=== PATIENT | male | born 1965 | race Caucasian/White ===

== ENCOUNTER 2020-05-26 07:37 | Day surgery (SDCO) | payer OTHER ==
[2020-05-26 08:09] LABS: BASOPHIL 0.8 % (0-2); EOSINOPHIL 5.7 % (0-5); HCT 51.5 % (42.0-52.0); HGB 18.5 g/dl (13.2-18.0); LYMPHOCYTE 24.4 % (15-48); MCH 33.1 pg (25.0-31.0); MCHC 35.9 g/dL (32.0-36.0); MCV 92.1 fL (78.0-100.0); MONOCYTE 14.2 % (0-12); MPV 11.4 fL (6.0-9.5); NEUTROPHIL 54.4 % (41-80); NRBC 0; PLT 151 K/uL (150-400); RBC 5.59 M/uL (4.70-6.00); RDW 11.9 % (11.5-14.0); WBC 7.5 K/uL (4.0-10.5)
[2020-05-26 08:13] LABS: INR 1.24 (0.9-1.2); PROTHROMBIN TIME 14.8 SECONDS (11.4-13.6); PTT 30.6 SECONDS (22.2-34.7)
[2020-05-26 08:20] LABS: ALBUMIN 4.3 g/dL (3.4-5.0); BILIRUBIN - TOTAL 0.3 mg/dL (0.2-1.0); BUN/CREAT RATIO (CALC) 15.2 RATIO; CREATININE 0.66 mg/dL (0.67-1.17); GLOBULIN (CALCULATION) 3.2 g/dL; POTASSIUM 3.9 mmol/L (3.5-5.1); TOTAL PROTEIN 7.5 g/dL (6.4-8.2)
[2020-05-26 08:28] LABS: CKMB 0.5 ng/mL (0.0-3.6)
[2020-05-26 08:52] LABS: BILIRUBIN NEGATIVE (NEGATIVE); BLOOD NEGATIVE Ery/uL (NEGATIVE); CLARITY CLEAR (CLEAR); COLOR YELLOW (YELLOW); GLUCOSE (U) NORMAL (NORMAL); LEUKOCYTES NEGATIVE Leu/uL (NEGATIVE); NITRITE NEGATIVE (NEGATIVE); PROTEIN 1+ mg/dL (NEGATIVE); SPECIFIC GRAVITY 1.025 (1.001-1.030); UROBILINOGEN 0.2 mg/dL (0.2-1.0)
[2020-05-26 08:54] LABS: AMPHETAMINES NEGATIVE (NEGATIVE); BARBITURATES NEGATIVE (NEGATIVE); ECSTASY (MDMA) NEGATIVE (NEGATIVE); MARIJUANA (THC) NEGATIVE (NEGATIVE); METHADONE NEGATIVE (NEGATIVE); OPIATES NEGATIVE (NEGATIVE); OXYCODONE NEGATIVE (NEGATIVE)
[2020-05-26 09:00] LABS: SQUAMOUS EPITHELIAL CELLS RARE; URINARY WBC RARE
[2020-05-26] MEDS ORDERED: DOXYCYCLINE HY100 MG PO (10:37)
[2020-05-27 05:31] LABS: HCT 50.1 % (42.0-52.0); HGB 17.1 g/dl (13.2-18.0); MCH 32.5 pg (25.0-31.0); MCHC 34.1 g/dL (32.0-36.0); MCV 95.2 fL (78.0-100.0); RBC 5.26 M/uL (4.70-6.00); WBC 7.1 K/uL (4.0-10.5)
[2020-05-27 05:52] LABS: BUN/CREAT RATIO (CALC) 15.5 RATIO; CREATININE 0.58 mg/dL (0.67-1.17); POTASSIUM 4.2 mmol/L (3.5-5.1)
[2020-05-27] MEDS ORDERED: IBUPROFEN600 MG PO (12:46)
[2020-05-27] MEDS ORDERED: HABITROL7 MG TD (12:46)
[2020-05-27] MEDS ORDERED: ASPIRIN81 MG PO (12:46)
[2020-05-27] MEDS ORDERED: DOXYCYCLINE HY100 MG PO (13:36)
== END 2020-05-27 13:59 | disposition home or self-care (01) ==
LOC: FER 07:37 → FMS 09:18
PROVIDERS: Emergency Medicine; Hospitalist; ADMIT Internal Medicine
DX: R07.89 Other chest pain (principal); F17.210 Nicotine dependence, cigarettes, uncomplicated; F10.10 Alcohol abuse, uncomplicated; A77.0 Spotted fever due to Rickettsia rickettsii; I10 Essential (primary) hypertension; Z79.2 Long term (current) use of antibiotics; Z91.012 Allergy to eggs; Z20.822 Contact with and (suspected) exposure to COVID-19; Y90.0 Blood alcohol level of less than 20 mg/100 ml
CPT/HCPCS: 36415; 71046; 80048; 80053; 80305; 81001; 82553; 84484; 85025; 85610; 85730; 93005; G0378; G0480; J3411; J3475; J7120; U0002